=== PATIENT | male | born 1945 | race Caucasian/White ===

== ENCOUNTER 2022-02-22 13:06 | Inpatient (IN) | payer OTHER ==
[~2022-02-22] VITALS: Ht 172.7 cm; Wt 66.7 kg
[~2022-02-22 13:06] MED LIST: ALLO300T2 PO; BISA-79 PO; BISA10SU61 RC; BUME1TAB8 PO; CEPH250C PO; COLC0.6T67 PO; COLL100 PO; DIGO-31 PO; EPOE4000 IJ; ESCI10TA PO; FERR-69 PO; FINA5TAB3 PO; FURO-150 PO; IPRA4AER INH; LIDO73LI TP; LIP40 PO; LISI-209 PO; MUC20RT MC; MULT-955 PO; NUT.237L30 PO; SENN8.6T19 PO; SSNOVOLOG SUBCUT; TAMS-11 PO; TRAM50TA PO
[2022-02-22 13:19] VITALS: BP_SYST 110
[2022-02-22 16:07] LABS: BASOPHILS % (AUTO) 0.7 % (0.0-2.0); EOSINOPHILS % (AUTO) 0.1 % (0.0-4.0); HEMATOCRIT 24.6 % (36-54); HEMOGLOBIN 8.1 g/dL (14.0-18.0); LYMPHOCYTES # (AUTO) 0.3 K/uL (1.0-5.5); LYMPHOCYTES % (AUTO) 4.7 % (20.5-51.5); MEAN CORPUSCULAR HEMOGLOBIN 28 pg (27-31); MEAN CORPUSCULAR HGB CONC 33 % (32-36); MEAN CORPUSCULAR VOLUME 83 fL (79.0-98.0); MONOCYTES # (AUTO) 0.3 K/uL (0.0-1.0); MONOCYTES % (AUTO) 6.2 % (1.7-9.3); NEUTROPHILS # (AUTO) 4.9 K/uL (1.8-7.7); NEUTROPHILS % (AUTO) 88.3 % (40.0-70.0); PLATELET COUNT (AUTO) 114 K/uL (130-430); RED BLOOD CELL COUNT(AUTO) 2.95 MIL/uL (4.2-6.2); WHITE BLOOD COUNT (AUTO) 5.5 K/uL (4.8-10.8)
[2022-02-22 16:38] LABS: ANION GAP 6 (5-15); CALCIUM 9.6 mg/dL (8.4-11.0); CHLORIDE 101 mmol/L (98-107); CREATININE 2.12 mg/dL (0.55-1.30); GLUCOSE 142 mg/dL (70-99); UREA NITROGEN, BLOOD 47 mg/dL (8-21)
[2022-02-22 16:46] LABS: ALANINE AMINOTRANSFERASE 13 U/L (12-78); ASPARTATE AMINOTRANSFERASE 16 U/L (10-37); TOTAL BILIRUBIN 0.5 mg/dL (0.0-1.0)
[2022-02-22] MEDS ORDERED: MORPHINE 2 MG/ML INJ. SYRINGE IVP ONE (19:45)
[2022-02-22] MEDS ORDERED: ONDANSETRON HCL 4 MG/2 ML VIAL IVP ONE (19:45)
[2022-02-22] MEDS ORDERED: cefTRIAXone 1 GM IVPB PREMIX 50 ML IV ONE ×2 (20:00→22:34)
[2022-02-22] MEDS ORDERED: ONDANSETRON HCL 4 MG/2 ML VIAL ONE (22:34)
[2022-02-22] MEDS ORDERED: MORPHINE 2 MG/ML INJ. SYRINGE ONE (22:34)
[2022-02-23] VITALS (7 sets, daily range): BP systolic 112–143
[2022-02-23 10:36] LABS: ANION GAP 5 (5-15); CALCIUM 9.8 mg/dL (8.4-11.0); CHLORIDE 99 mmol/L (98-107); CREATININE 1.98 mg/dL (0.55-1.30); GLUCOSE 132 mg/dL (70-99); UREA NITROGEN, BLOOD 51 mg/dL (8-21)
[2022-02-23 10:37] LABS: BASOPHILS % (AUTO) 0.7 % (0.0-2.0); EOSINOPHILS % (AUTO) 0.2 % (0.0-4.0); HEMATOCRIT 27.8 % (36-54); LYMPHOCYTES # (AUTO) 0.3 K/uL (1.0-5.5); LYMPHOCYTES % (AUTO) 4.7 % (20.5-51.5); MEAN CORPUSCULAR HEMOGLOBIN 28 pg (27-31); MEAN CORPUSCULAR HGB CONC 33 % (32-36); MEAN CORPUSCULAR VOLUME 85 fL (79.0-98.0); MONOCYTES # (AUTO) 0.2 K/uL (0.0-1.0); MONOCYTES % (AUTO) 4.3 % (1.7-9.3); NEUTROPHILS # (AUTO) 5.2 K/uL (1.8-7.7); NEUTROPHILS % (AUTO) 90.1 % (40.0-70.0); PLATELET COUNT (AUTO) 126 K/uL (130-430); RED BLOOD CELL COUNT(AUTO) 3.28 MIL/uL (4.2-6.2); WHITE BLOOD COUNT (AUTO) 5.7 K/uL (4.8-10.8)
[2022-02-23 10:44] LABS: INR 1.2 (0.80-1.20); PROTHROMBIN TIME 12.2 SECS (9.5-12.5)
[2022-02-23] MEDS ORDERED: METOPROLOL SUCCINATE 25 MG TAB.SR.24H (TOPROL XL) PO ONE (11:45)
[2022-02-23] MEDS ORDERED: FUROSEMIDE 20 MG/2 ML VIAL IVP ONE (11:45)
[2022-02-23] MEDS ORDERED: NALOXONE HCL 0.4 MG/ML AMP (NARCAN) IVP PRN (12:15)
[2022-02-23] MEDS: ONDANSETRON HCL 4 MG/2 ML VIAL IVP PRN (13:16)
[2022-02-23] MEDS ORDERED: lisinopriL 5 MG TABLET PO ONE (14:30)
[2022-02-23] MEDS ORDERED: ISOSORBIDE MONONITRATE 30 MG TAB.ER.24H PO ONE (14:30)
[2022-02-23] MEDS ORDERED: IPRATROPIUM/ALBUTEROL SULFATE 120 PUFFS/4 GM INH INH PRN (15:45)
[2022-02-23] MEDS ORDERED: BISACODYL 5 MG TABLET.DR (DULCOLAX) PO PRN (15:45)
[2022-02-23] MEDS ORDERED: ESCITALOPRAM OXALATE 10 MG TABLET PO SCH (15:45)
[2022-02-23] MEDS ORDERED: ALLOPURINOL 300 MG TABLET (ZYLOPRIM) PO ONE ×2 (16:00→16:15)
[2022-02-23] MEDS ORDERED: ATORVASTATIN 20 MG TABLET PO ONE (16:00)
[2022-02-23] MEDS: MORPHINE 2 MG/ML INJ. SYRINGE IVP PRN (16:01)
[2022-02-23] MEDS ORDERED: FERROUS SULFATE 325 MG TABLET.DR PO ONE (16:15)
[2022-02-23] MEDS ORDERED: FINASTERIDE 5 MG TABLET (PROSCAR) PO ONE (16:15)
[2022-02-23 18:19] LABS: BASOPHILS % (AUTO) 0.5 % (0.0-2.0); HEMATOCRIT 27.3 % (36-54); HEMOGLOBIN 8.9 g/dL (14.0-18.0); LYMPHOCYTES # (AUTO) 0.2 K/uL (1.0-5.5); LYMPHOCYTES % (AUTO) 3.3 % (20.5-51.5); MEAN CORPUSCULAR HEMOGLOBIN 28 pg (27-31); MEAN CORPUSCULAR HGB CONC 33 % (32-36); MEAN CORPUSCULAR VOLUME 84 fL (79.0-98.0); MONOCYTES # (AUTO) 0.3 K/uL (0.0-1.0); MONOCYTES % (AUTO) 3.9 % (1.7-9.3); NEUTROPHILS # (AUTO) 6.2 K/uL (1.8-7.7); NEUTROPHILS % (AUTO) 92.3 % (40.0-70.0); PLATELET COUNT (AUTO) 137 K/uL (130-430); RED BLOOD CELL COUNT(AUTO) 3.25 MIL/uL (4.2-6.2); RED CELL DISTRIBUTION WIDTH 19.8 % (9.0-15.0); WHITE BLOOD COUNT (AUTO) 6.7 K/uL (4.8-10.8)
[2022-02-23 18:22] LABS: ANION GAP 6 (5-15); CHLORIDE 100 mmol/L (98-107); CREATININE 1.86 mg/dL (0.55-1.30); GLUCOSE 132 mg/dL (70-99); UREA NITROGEN, BLOOD 51 mg/dL (8-21)
[2022-02-23 19:38] LABS: URINE SODIUM, RANDOM 37 mmol/L (40-220)
[2022-02-23] MEDS: FUROSEMIDE 20 MG/2 ML VIAL IVP SCH (20:57)
[2022-02-23] MEDS ORDERED: VANCOMYCIN HCL 1 GM/NS PREMIX 250 ML IV ONE (22:00)
[2022-02-23] MEDS ORDERED: VANCOMYCIN HCL 1000 MG/VIAL IV ONE (22:34)
[2022-02-24 00:42] VITALS: BP_SYST 133
[2022-02-24 07:49] VITALS: BP_SYST 110
[2022-02-24] MEDS: CITALOPRAM HYDROBROMIDE 20 MG TABLET PO SCH (08:13)
[2022-02-24] MEDS: traMADol HCL HCL 50 MG TABLET (ULTRAM) PO PRN ×2 (08:13→16:21)
[2022-02-24] MEDS: ALLOPURINOL 300 MG TABLET (ZYLOPRIM) PO SCH (08:13)
[2022-02-24] MEDS: FINASTERIDE 5 MG TABLET (PROSCAR) PO SCH (08:13)
[2022-02-24] MEDS: FERROUS SULFATE 325 MG TABLET.DR PO SCH (08:14)
[2022-02-24] MEDS: ATORVASTATIN 20 MG TABLET PO SCH (08:14)
[2022-02-24] MEDS: METOPROLOL SUCCINATE 25 MG TAB.SR.24H (TOPROL XL) PO SCH (08:14)
[2022-02-24] MEDS: lisinopriL 5 MG TABLET PO SCH (08:15)
[2022-02-24] MEDS: ISOSORBIDE MONONITRATE 30 MG TAB.ER.24H PO SCH (08:15)
[2022-02-24] MEDS: FUROSEMIDE 20 MG/2 ML VIAL IVP SCH ×2 (08:16→21:00)
[2022-02-24] MEDS ORDERED: DIGOXIN 0.5 MG/2 ML AMP IVP SCH (09:00)
[2022-02-24 10:52] LABS: ANION GAP 4 (5-15); CALCIUM 9.2 mg/dL (8.4-11.0); CHLORIDE 102 mmol/L (98-107); CREATININE 1.69 mg/dL (0.55-1.30); GLUCOSE 118 mg/dL (70-99); UREA NITROGEN, BLOOD 50 mg/dL (8-21)
[2022-02-24 10:58] LABS: ALANINE AMINOTRANSFERASE 6 U/L (12-78); ALBUMIN 2.4 g/dL (3.4-4.8); ASPARTATE AMINOTRANSFERASE 13 U/L (10-37); TOTAL BILIRUBIN 0.5 mg/dL (0.0-1.0)
[2022-02-24 11:36] VITALS: BP_SYST 94
[2022-02-24] MEDS: ACETAMINOPHEN 500 MG TABLET PO PRN (13:37)
[2022-02-24] MEDS: VANCOMYCIN HCL 750 MG in NS 250 ML IV SCH (13:39)
[2022-02-24 15:28] VITALS: BP_SYST 102
[2022-02-25 00:20] VITALS: BP_SYST 90
[2022-02-25 06:44] LABS: BASOPHILS # (AUTO) 0.1 K/uL (0.0-0.2); BASOPHILS % (AUTO) 0.8 % (0.0-2.0); EOSINOPHILS # (AUTO) 0.1 K/uL (0.0-0.4); EOSINOPHILS % (AUTO) 2.2 % (0.0-4.0); HEMATOCRIT 26.4 % (36-54); HEMOGLOBIN 8.5 g/dL (14.0-18.0); LYMPHOCYTES # (AUTO) 0.4 K/uL (1.0-5.5); LYMPHOCYTES % (AUTO) 6.1 % (20.5-51.5); MEAN CORPUSCULAR HEMOGLOBIN 27 pg (27-31); MEAN CORPUSCULAR HGB CONC 32 % (32-36); MEAN CORPUSCULAR VOLUME 85 fL (79.0-98.0); MONOCYTES # (AUTO) 0.4 K/uL (0.0-1.0); NEUTROPHILS # (AUTO) 5.3 K/uL (1.8-7.7); NEUTROPHILS % (AUTO) 83.9 % (40.0-70.0); PLATELET COUNT (AUTO) 166 K/uL (130-430); RED BLOOD CELL COUNT(AUTO) 3.11 MIL/uL (4.2-6.2); RED CELL DISTRIBUTION WIDTH 19.5 % (9.0-15.0); WHITE BLOOD COUNT (AUTO) 6.3 K/uL (4.8-10.8)
[2022-02-25 06:59] LABS: ANION GAP 4 (5-15); CALCIUM 9.3 mg/dL (8.4-11.0); CHLORIDE 102 mmol/L (98-107); CREATININE 1.57 mg/dL (0.55-1.30); GLUCOSE 110 mg/dL (70-99); UREA NITROGEN, BLOOD 50 mg/dL (8-21)
[2022-02-25 07:58] VITALS: BP_SYST 108
[2022-02-25] MEDS: CITALOPRAM HYDROBROMIDE 20 MG TABLET PO SCH (09:19)
[2022-02-25] MEDS: ALLOPURINOL 300 MG TABLET (ZYLOPRIM) PO SCH (09:20)
[2022-02-25] MEDS: FERROUS SULFATE 325 MG TABLET.DR PO SCH (09:20)
[2022-02-25] MEDS: ATORVASTATIN 20 MG TABLET PO SCH (09:20)
[2022-02-25] MEDS: FINASTERIDE 5 MG TABLET (PROSCAR) PO SCH (09:20)
[2022-02-25] MEDS: FUROSEMIDE 20 MG/2 ML VIAL IVP SCH ×2 (09:21→21:00)
[2022-02-25] MEDS: lisinopriL 5 MG TABLET PO SCH (09:21)
[2022-02-25] MEDS: ISOSORBIDE MONONITRATE 30 MG TAB.ER.24H PO SCH (09:21)
[2022-02-25] MEDS: METOPROLOL SUCCINATE 25 MG TAB.SR.24H (TOPROL XL) PO SCH (09:22)
[2022-02-25 12:04] VITALS: BP_SYST 100
[2022-02-25] MEDS: VANCOMYCIN HCL 750 MG in NS 250 ML IV SCH (13:18)
[2022-02-25 16:04] VITALS: BP_SYST 96
[2022-02-25 20:00] VITALS: BP_SYST 94
[2022-02-26] MEDS: traMADol HCL HCL 50 MG TABLET (ULTRAM) PO PRN ×2 (00:24→17:03)
[2022-02-26 01:09] VITALS: BP_SYST 90
[2022-02-26] MEDS: ACETAMINOPHEN 500 MG TABLET PO PRN (03:18)
[2022-02-26 07:45] LABS: ANION GAP 2 (5-15); C-REACTIVE PROTEIN QUANT 4.1 mg/dL (0-0.5); CALCIUM 9.2 mg/dL (8.4-11.0); CHLORIDE 103 mmol/L (98-107); CREATININE 1.46 mg/dL (0.55-1.30); GLUCOSE 99 mg/dL (70-99); PHOSPHORUS 2.6 mg/dL (2.7-4.5); UREA NITROGEN, BLOOD 47 mg/dL (8-21)
[2022-02-26 08:16] LABS: BASOPHILS # (AUTO) 0.1 K/uL (0.0-0.2); BASOPHILS % (AUTO) 1.3 % (0.0-2.0); EOSINOPHILS # (AUTO) 0.2 K/uL (0.0-0.4); EOSINOPHILS % (AUTO) 3.1 % (0.0-4.0); HEMATOCRIT 25.9 % (36-54); HEMOGLOBIN 8.3 g/dL (14.0-18.0); LYMPHOCYTES # (AUTO) 0.4 K/uL (1.0-5.5); LYMPHOCYTES % (AUTO) 6.6 % (20.5-51.5); MEAN CORPUSCULAR HEMOGLOBIN 27 pg (27-31); MEAN CORPUSCULAR HGB CONC 32 % (32-36); MEAN CORPUSCULAR VOLUME 84 fL (79.0-98.0); MONOCYTES # (AUTO) 0.4 K/uL (0.0-1.0); MONOCYTES % (AUTO) 6.7 % (1.7-9.3); NEUTROPHILS % (AUTO) 82.3 % (40.0-70.0); PLATELET COUNT (AUTO) 172 K/uL (130-430); RED BLOOD CELL COUNT(AUTO) 3.09 MIL/uL (4.2-6.2); RED CELL DISTRIBUTION WIDTH 19.5 % (9.0-15.0); WHITE BLOOD COUNT (AUTO) 6.1 K/uL (4.8-10.8)
[2022-02-26 08:21] VITALS: BP_SYST 106; BP_SYST 89
[2022-02-26] MEDS: FUROSEMIDE 20 MG/2 ML VIAL IVP SCH ×3 (09:00→21:00)
[2022-02-26] MEDS: ATORVASTATIN 20 MG TABLET PO SCH (09:00)
[2022-02-26] MEDS: CITALOPRAM HYDROBROMIDE 20 MG TABLET PO SCH (09:00)
[2022-02-26] MEDS: FERROUS SULFATE 325 MG TABLET.DR PO SCH (09:00)
[2022-02-26] MEDS: METOPROLOL SUCCINATE 25 MG TAB.SR.24H (TOPROL XL) PO SCH (09:01)
[2022-02-26] MEDS: FINASTERIDE 5 MG TABLET (PROSCAR) PO SCH (09:09)
[2022-02-26] MEDS: ALLOPURINOL 300 MG TABLET (ZYLOPRIM) PO SCH (09:09)
[2022-02-26] MEDS: IPRATROPIUM/ALBUTEROL SULFATE 3 ML AMPUL.NEB (DUONEB) INH PRN (09:37)
[2022-02-26 10:01] VITALS: BP_SYST 108
[2022-02-26] MEDS: ISOSORBIDE MONONITRATE 30 MG TAB.ER.24H PO SCH (10:03)
[2022-02-26] MEDS: lisinopriL 5 MG TABLET PO SCH (10:04)
[2022-02-26 11:16] VITALS: BP_SYST 98
[2022-02-26 11:52] LABS: ERYTHROCYTE SEDIMENTATION RATE 13 MM/HR (0-15)
[2022-02-26] MEDS ORDERED: NA PHOS 15 MM in NS 250 ML IV ONE (12:30)
[2022-02-26] MEDS: DAPTOmycin 400 MG in NS 50 ML IV SCH (14:47)
[2022-02-26 16:37] VITALS: BP_SYST 91; BP_SYST 95
[2022-02-26 20:00] VITALS: BP_SYST 90
[2022-02-27] VITALS (7 sets, daily range): BP systolic 74–126
[2022-02-27] MEDS: MORPHINE 2 MG/ML INJ. SYRINGE IVP PRN ×2 (04:59→23:35)
[2022-02-27] MEDS: IPRATROPIUM/ALBUTEROL SULFATE 3 ML AMPUL.NEB (DUONEB) INH PRN (05:25)
[2022-02-27 06:27] LABS: EOSINOPHILS # (AUTO) 1.2 K/uL (0.0-0.4); EOSINOPHILS % (AUTO) 23.2 % (0.0-4.0); HEMATOCRIT 25.5 % (36-54); HEMOGLOBIN 8.2 g/dL (14.0-18.0); LYMPHOCYTES # (AUTO) 0.8 K/uL (1.0-5.5); MEAN CORPUSCULAR HEMOGLOBIN 27 pg (27-31); MEAN CORPUSCULAR HGB CONC 32 % (32-36); MEAN CORPUSCULAR VOLUME 84 fL (79.0-98.0); MONOCYTES # (AUTO) 0.1 K/uL (0.0-1.0); MONOCYTES % (AUTO) 2.8 % (1.7-9.3); PLATELET COUNT (AUTO) 158 K/uL (130-430); RED BLOOD CELL COUNT(AUTO) 3.04 MIL/uL (4.2-6.2); RED CELL DISTRIBUTION WIDTH 19.6 % (9.0-15.0); WHITE BLOOD COUNT (AUTO) 5.1 K/uL (4.8-10.8)
[2022-02-27 07:29] LABS: ALANINE AMINOTRANSFERASE 9 U/L (12-78); ALBUMIN 2.4 g/dL (3.4-4.8); ANION GAP 3 (5-15); ASPARTATE AMINOTRANSFERASE 17 U/L (10-37); C-REACTIVE PROTEIN QUANT 3.1 mg/dL (0-0.5); CALCIUM 9.1 mg/dL (8.4-11.0); CHLORIDE 102 mmol/L (98-107); CREATININE 1.36 mg/dL (0.55-1.30); GLUCOSE 107 mg/dL (70-99); PHOSPHORUS 2.9 mg/dL (2.7-4.5); TOTAL BILIRUBIN 0.6 mg/dL (0.0-1.0); UREA NITROGEN, BLOOD 44 mg/dL (8-21)
[2022-02-27 10:36] LABS: ERYTHROCYTE SEDIMENTATION RATE 10 MM/HR (0-15)
[2022-02-27] MEDS: ONDANSETRON HCL 4 MG/2 ML VIAL IVP PRN (10:58)
[2022-02-27] MEDS: FUROSEMIDE 20 MG/2 ML VIAL IVP SCH ×2 (10:58→20:37)
[2022-02-27] MEDS: ALLOPURINOL 300 MG TABLET (ZYLOPRIM) PO SCH (13:20)
[2022-02-27] MEDS: FINASTERIDE 5 MG TABLET (PROSCAR) PO SCH (13:20)
[2022-02-27] MEDS: FERROUS SULFATE 325 MG TABLET.DR PO SCH (13:21)
[2022-02-27] MEDS: CITALOPRAM HYDROBROMIDE 20 MG TABLET PO SCH (13:21)
[2022-02-27] MEDS: ATORVASTATIN 20 MG TABLET PO SCH (13:21)
[2022-02-27] MEDS: METOPROLOL SUCCINATE 25 MG TAB.SR.24H (TOPROL XL) PO SCH (13:22)
[2022-02-27] MEDS: lisinopriL 5 MG TABLET PO SCH (13:23)
[2022-02-27] MEDS: ISOSORBIDE MONONITRATE 30 MG TAB.ER.24H PO SCH (13:23)
[2022-02-27] MEDS: traMADol HCL HCL 50 MG TABLET (ULTRAM) PO PRN ×2 (13:27→20:37)
[2022-02-27] MEDS: DAPTOmycin 400 MG in NS 50 ML IV SCH (13:28)
[2022-02-28] VITALS: BP_SYST 93
[2022-02-28 03:26] VITALS: BP_SYST 93
== END 2022-02-28 07:00 | disposition short-term general hospital (02) | DRG 314 ==
LOC: SED 13:06 → STU 21:42
PROVIDERS: ADMIT Internal Medicine; ATTEND Internal Medicine
DX: T82.7XXA Infection and inflammatory reaction due to other cardiac and vascular devices, implants and grafts, initial encounter (principal); A41.9 Sepsis, unspecified organism; I50.43 Acute on chronic combined systolic (congestive) and diastolic (congestive) heart failure; S72.142A Displaced intertrochanteric fracture of left femur, initial encounter for closed fracture; N17.9 Acute kidney failure, unspecified; I13.0 Hypertensive heart and chronic kidney disease with heart failure and stage 1 through stage 4 chronic kidney disease, or unspecified chronic kidney disease; E78.5 Hyperlipidemia, unspecified; E11.65 Type 2 diabetes mellitus with hyperglycemia; I44.7 Left bundle-branch block, unspecified; I25.10 Atherosclerotic heart disease of native coronary artery without angina pectoris; N40.0 Benign prostatic hyperplasia without lower urinary tract symptoms; E83.39 Other disorders of phosphorus metabolism; W18.39XA Other fall on same level, initial encounter; D64.9 Anemia, unspecified; I37.1 Nonrheumatic pulmonary valve insufficiency; I35.1 Nonrheumatic aortic (valve) insufficiency; I36.1 Nonrheumatic tricuspid (valve) insufficiency; Y83.8 Other surgical procedures as the cause of abnormal reaction of the patient, or of later complication, without mention of misadventure at the time of the procedure; Z20.822 Contact with and (suspected) exposure to COVID-19; N18.9 Chronic kidney disease, unspecified; E11.22 Type 2 diabetes mellitus with diabetic chronic kidney disease; I25.2 Old myocardial infarction; Y93.89 Activity, other specified; Y92.89 Other specified places as the place of occurrence of the external cause; Y99.8 Other external cause status
CPT/HCPCS: 36415; 71045; 72170-TC; 73552; 73700-TC; 76376; 80048; 80053; 80162; 80202; 82272; 82570; 83605; 83735; 83880; 84100; 84302; 84484; 85025; 85610-TC; 85651-TC; 85730-TC; 86140; 86886; 86900; 86901; 87040; 87081; 87186-TC; 93005; 93306; 94640; 94760; 96365; 96375; 99285; G0378; J0696; J0878; J1160; J1940; J2270; J2405; J3370; J7050